=== PATIENT | female | born 1975 | race Two or more races ===

== ENCOUNTER 2018-09-26 13:32 | Emergency (ER) | payer SELFPAY ==
[~2018-09-26] VITALS: Ht 167.6 cm; Wt 95.7 kg
--- NOTE | 2018-09-26 13:47 | NUR ---
COUGH X 3 DAYS. SOB, WHEEZING UNRELIEVED W/ INHALER. WORSENING DYSPNEA ON EXERTION. PT IS AOX4, AMB, HYPERTENSIVE. HOOKED TO MONITOR AND READY FOR EVAL. AT BEDSIDE.
[2018-09-26] MEDS ORDERED: IPRATROPIUM NEB FS 0.5 MG/2.5 ML AMPUL.NEB NEB ONE (14:00)
[2018-09-26] MEDS ORDERED: ALBUTEROL FS 2.5 MG/3 ML VIAL.NEB NEB ONE (14:00)
[2018-09-26] MEDS ORDERED: predniSONE 20 MG TABLET PO ONE (14:00)
[2018-09-26] MEDS ORDERED: ALBUTEROL FS 2.5 MG/3 ML VIAL.NEB ONE (14:12)
[2018-09-26] MEDS ORDERED: IPRATROPIUM NEB FS 0.5 MG/2.5 ML AMPUL.NEB ONE (14:12)
[2018-09-26] MEDS ORDERED: predniSONE 20 MG TABLET ONE (14:13)
[2018-09-26] MEDS ORDERED: Magnesium 1GM/D5W 100ML PREMIX 200 ML IV ONE (14:44)
[2018-09-26] MEDS: Magnesium 1GM/D5W 100ML PREMIX 200 ML IV ONE (15:10)
--- NOTE | 2018-09-26 15:11 | NUR ---
PT REFUSES URINE COLLECTION. COLLETTE ROSS
[2018-09-26 15:16] LABS: BASOPHILS # (AUTO) 0.1 /CMM (0.0-0.2); EOSINOPHILS % (AUTO) 3.2 % (0.0-6.0); HEMATOCRIT 42 % (33-45); HEMOGLOBIN 13.9 g/dL (11.5-14.8); LYMPHOCYTES # (AUTO) 3.5 /CMM (0.8-4.8); MEAN CORPUSCULAR HGB CONC 34 g/dl (31.0-36.0); MEAN CORPUSCULAR VOLUME 96 fL (82-100); MONOCYTES # (AUTO) 0.3 /CMM (0.1-1.30); MONOCYTES % (AUTO) 4.9 % (2.0-12.0); NEUTROPHILS # (AUTO) 2.3 /CMM (1.8-8.9); NEUTROPHILS % (AUTO) 35.9 % (43.0-81.0); PLATELET COUNT (AUTO) 222 /CMM (150-450); RED BLOOD CELL COUNT(AUTO) 4.32 MIL/uL (4.0-5.2); WHITE BLOOD COUNT (AUTO) 6.4 K/uL (4.3-11.0)
[2018-09-26 15:22] LABS: CALCIUM, SERUM 8.9 mg/dL (8.5-10.1); CREATININE 0.6 mg/dL (0.6-1.3); POTASSIUM 3.8 mmol/L (3.5-5.1)
[2018-09-26 15:34] LABS: ALBUMIN 3.7 g/dL (3.4-5.0); BILIRUBIN,DIRECT 0.1 mg/dL (0.0-0.2); BILIRUBIN,TOTAL 0.6 mg/dL (0.2-1.0); TOTAL PROTEIN, SERUM 7.3 g/dL (6.4-8.2)
--- NOTE | 2018-09-26 15:39 | NUR ---
Patient is resting comfortably in bed with eyes closed. Easily aroused. VSS
[2018-09-26 15:52] LABS: ABG BASE EXCESS 0.2 mmol/L; ABG OXYGEN SATURATION 94.9 % (92.0-98.5); ABG PCO2 32.4 mmHg (35.0-45.0); ABG PH 7.472 (7.350-7.450); ABG PO2 79.3 mmHg (75.0-100.0); AaDO2 31.6 mmHg; COHb 0.2 % (0.5-1.5); MetHb 0.5 % (0.0-1.5); O2Hb 94.2 % (94.0-97.0); SITE, ABG Left Radial; VENT MODE, BG ROOM AIR
--- NOTE | 2018-09-26 16:15 | NUR ---
FIRST BAG OF MAG COMPLETED. PT AMITA WELL. 2ND BAG INFUSING
--- NOTE | 2018-09-26 16:42 | NUR ---
AMBULATED TO RESTROOM
--- NOTE | 2018-09-26 17:25 | NUR ---
IV removed. Catheter intact and site benign. Pressure and 4x4 applied to site. No bleeding noted. Patient discharged to home in stable condition. Written and verbal after care instructions given. Patient verbalizes understanding of instruction.
[2018-09-26 18:03] VITALS: BP 146/81
== END 2018-09-26 17:25 | disposition home or self-care (01) ==
LOC: ER 13:44
DX: J45.909 Unspecified asthma, uncomplicated (principal); E11.9 Type 2 diabetes mellitus without complications
CPT/HCPCS: 36415; 36600 ×2; 71045; 80048; 80076; 82803; 82962; 85025; 87804 ×2; 94640; 96365; 96366; 99284; J3475; J7512; 87400

== ENCOUNTER 2018-10-22 10:29 | Emergency (ER) | payer MEDICAID ==
[~2018-10-22] VITALS: Ht 167.6 cm; Wt 97.5 kg
[2018-10-22 10:34] VITALS: BP 166/105
== END 2018-10-22 10:58 | disposition home or self-care (01) ==
LOC: ER 10:29
DX: L03.032 Cellulitis of left toe (principal); H00.015 Hordeolum externum left lower eyelid; J45.909 Unspecified asthma, uncomplicated; E11.9 Type 2 diabetes mellitus without complications

== ENCOUNTER 2018-10-30 10:18 | Emergency (ER) | payer MEDICAID ==
[~2018-10-30] VITALS: Ht 167.6 cm; Wt 90.7 kg
[2018-10-30 10:54] VITALS: BP 130/84
[2018-10-30] MEDS ORDERED: KETOROLAC TROMETHAMINE INJ 60 MG/2 ML VIAL IM ONE ×2 (11:30→11:53)
--- NOTE | 2018-10-30 11:45 | NUR ---
urine collected and sent to lab.
--- NOTE | 2018-10-30 12:21 | NUR ---
Patient discharged to home in stable condition. Written and verbal after care instructions given. Patient verbalizes understanding of instruction.
== END 2018-10-30 12:20 | disposition home or self-care (01) ==
LOC: ER 10:20
DX: S20.212A Contusion of left front wall of thorax, initial encounter (principal); J45.909 Unspecified asthma, uncomplicated; M54.5 Low back pain; G89.29 Other chronic pain; E11.9 Type 2 diabetes mellitus without complications; X58.XXXA Exposure to other specified factors, initial encounter; Y93.89 Activity, other specified; Y92.89 Other specified places as the place of occurrence of the external cause; Y99.8 Other external cause status
CPT/HCPCS: 84703; 96374; 99283; J1885

== ENCOUNTER 2024-09-12 13:47 | Emergency (ER) | payer MEDICAID, OTHER ==
[~2024-09-12] VITALS: Ht 165.1 cm; Wt 120.2 kg
[2024-09-12 14:15] VITALS: TEMP 98.3; O2SAT 98
== END 2024-09-12 15:08 | disposition left against medical advice (07) ==
LOC: ER 13:52
DX: Z53.21 Procedure and treatment not carried out due to patient leaving prior to being seen by health care provider (principal)